=== PATIENT | female | born 1955 | race Hispanic/Latino ===

== ENCOUNTER → 2020-03-22 | Outpatient (CLI) | payer MEDICARE | LOC: US 10:35 | PROVIDERS: ATTEND Internal Medicine | DX: N18.9 Chronic kidney disease, unspecified (principal) | CPT/HCPCS: 76770 ==

== ENCOUNTER → 2020-12-01 | Day surgery (SDC) | payer MEDICARE ==
[2020-11-28 11:32] LABS: BASOPHILS # (AUTO) 0.1 (0.0-0.1); BASOPHILS % 0.6 % (0.0-1.0); EOSINOPHILS # (AUTO) 0.2 (0.0-0.4); EOSINOPHILS % 2.3 % (0.0-6.0); HEMATOCRIT 46.3 % (34.2-44.1); HEMOGLOBIN 14.2 g/dL (12.0-16.0); LYMPHOCYTES # (AUTO) 2.3 (1.0-3.2); LYMPHOCYTES % 28.2 % (18.0-39.1); MEAN CORPUSCULAR HGB CONC 30.7 g/dL (31-35); MEAN CORPUSCULAR VOLUME 81.5 fL (81-99); MONOCYTES # (AUTO) 0.7 (0.2-0.8); MONOCYTES % 8.6 % (4.4-11.3); NEUTROPHILS # (AUTO) 4.9 (2.1-6.9); NEUTROPHILS % 60.1 % (38.7-80.0); PLATELET COUNT 275 x10e3/uL (140-360); RED BLOOD COUNT 5.68 x10e6/uL (3.6-5.1); RED CELL DISTRIBUTION WIDTH 18.6 % (11.7-14.4)
[~2020-12-01] MED LIST: CYMBALTA30 MG; FENTANYL CITRATE/PF 100MCG/2 ML INJ ONE; FEROSUL325 MG PO; FUROSEMIDE40 MG PO; LANTUS 3ML100 UNITS/ SQ; LIDOCAINE HCL 2% LOCAL INJ 5 ML SDV VIAL INJ ONE; LINZESS145 MCG; LIPITOR20 MG PO; LISINOPRIL10 MG PO; LORATADINE10 MG PO; MIDAZOLAM HCL 2 MG/2 ML VIAL ONE; NEURONTIN400 MG PO; PANTOPRAZOLE SO40 MG PO; PLAVIX75 MG PO; PROPOFOL IV EMULSION 10 MG/ML 20 ML VIAL ONE; SLOW-MAG64 MG PO; TRICOR145 MG PO; VITAMIN D3125 MCG; ZETIA10 MG PO
[2020-12-01 12:16] VITALS: BP 103/61
== END | disposition home or self-care (01) ==
LOC: OR 10:07
PROVIDERS: ATTEND Internal Medicine Gastroenterology
DX: D50.0 Iron deficiency anemia secondary to blood loss (chronic) (principal); K57.30 Diverticulosis of large intestine without perforation or abscess without bleeding; K64.8 Other hemorrhoids; K29.50 Unspecified chronic gastritis without bleeding; K44.9 Diaphragmatic hernia without obstruction or gangrene; Z86.010 Personal history of colon polyps; I25.10 Atherosclerotic heart disease of native coronary artery without angina pectoris; E11.9 Type 2 diabetes mellitus without complications; K21.9 Gastro-esophageal reflux disease without esophagitis; E78.00 Pure hypercholesterolemia, unspecified; K25.9 Gastric ulcer, unspecified as acute or chronic, without hemorrhage or perforation; F17.210 Nicotine dependence, cigarettes, uncomplicated; Z82.49 Family history of ischemic heart disease and other diseases of the circulatory system; Z83.3 Family history of diabetes mellitus
CPT/HCPCS: 36415 ×2; 43239; 45378; 82948; 85025; 93005; J2001; J2250; J2704; J3010; U0002

== ENCOUNTER → 2024-02-11 | Outpatient (REF) | payer MEDICARE ==
[~2024-02-11] MED LIST changes: -FENTANYL CITRATE/PF 100MCG/2 ML INJ ONE; -LIDOCAINE HCL 2% LOCAL INJ 5 ML SDV VIAL INJ ONE; -MIDAZOLAM HCL 2 MG/2 ML VIAL ONE; -PROPOFOL IV EMULSION 10 MG/ML 20 ML VIAL ONE
== END ==
LOC: CARD 13:30
PROVIDERS: ATTEND Internal Medicine
DX: M79.604 Pain in right leg (principal); M79.605 Pain in left leg
CPT/HCPCS: 93925

== ENCOUNTER 2024-03-11 12:53 | Inpatient (IN) | payer MEDICARE ==
[~2024-03-11] VITALS: Ht 165.1 cm; Wt 83.9 kg
[2024-03-11 14:11] VITALS: PULSE 77; RESP 15; TEMP 98.7
[2024-03-11 14:36] LABS: BASOPHILS % 0.7 % (0.0-1.0); EOSINOPHILS # (AUTO) 0.1 (0.0-0.4); EOSINOPHILS % 1.8 % (0.0-6.0); HEMATOCRIT 35.2 % (34.2-44.1); HEMOGLOBIN 9.3 g/dL (12.0-16.0); LYMPHOCYTES % 16.7 % (18.0-39.1); MEAN CORPUSCULAR HEMOGLOBIN 18.8 pg (28-32); MEAN CORPUSCULAR HGB CONC 26.4 g/dL (31-35); MEAN CORPUSCULAR VOLUME 71.1 fL (81-99); MONOCYTES # (AUTO) 0.5 (0.2-0.8); MONOCYTES % 7.4 % (4.4-11.3); NEUTROPHILS # (AUTO) 4.5 (2.1-6.9); NEUTROPHILS % 73.1 % (38.7-80.0); PLATELET COUNT 328 x10e3/uL (140-360); RED BLOOD COUNT 4.95 x10e6/uL (3.6-5.1); RED CELL DISTRIBUTION WIDTH 22.9 % (11.7-14.4); WHITE BLOOD COUNT 6.12 x10e3/uL (4.8-10.8)
[2024-03-11 15:25] LABS: ALBUMIN 3.8 g/dL (3.5-5.0); ALBUMIN/GLOBULIN RATIO 1.1 (0.8-2.0); ANION GAP 19.1 mmol/L (8-16); BILIRUBIN,TOTAL 0.3 mg/dL (0.2-1.2); CALCIUM 10.1 mg/dL (8.4-10.2); CREATININE, SERUM 1.73 mg/dL (0.57-1.11); TOTAL PROTEIN 7.3 g/dL (6.5-8.1)
[2024-03-11 15:34] LABS: POTASSIUM 6.1 mmol/L (3.5-5.1)
[2024-03-11] MEDS: DEXTROSE 50% SYRINGE 50 ML IV STA (16:24)
[2024-03-11] MEDS: SODIUM BICARBONATE 8.4% INJ 50 ML SYR IV STA (16:30)
[2024-03-11] MEDS: SOD POLYSTYRENE SULFONATE SUSP 15 GM/60 ML BTL PO ONE (16:33)
[2024-03-11] MEDS: INSULIN REGULAR, HUMAN 100 UNIT/1 ML IV ONE (16:33)
[2024-03-11] MEDS: CALCIUM GLUC 1 G/50 ML NACL 50 ML IV SCH ×2 (16:33→23:59)
[2024-03-11] MEDS: ALBUTEROL SULF 0.083% NEB SOLN 3 ML NEB NEB STA (16:46)
[2024-03-11 17:48] VITALS: PULSE 74; RESP 20; O2SAT 98
[2024-03-11 18:24] VITALS: PULSE 81; RESP 17; O2SAT 97
[2024-03-11 19:18] VITALS: BP 124/57; PULSE 77; RESP 18; TEMP 97.6; O2SAT 97
[2024-03-11] MEDS: FUROSEMIDE INJ 10 MG/ML 2 ML VIAL IV ONE (21:52)
[2024-03-11 23:28] VITALS: BP 146/62; PULSE 74; RESP 18; TEMP 97.7; O2SAT 96
[2024-03-11] MEDS: FUROSEMIDE INJ 10 MG/ML 2 ML VIAL ONE (23:58)
[2024-03-12 03:13] VITALS: BP 107/59; PULSE 73; RESP 18; TEMP 98.2; O2SAT 97
[2024-03-12 07:03] LABS: ANION GAP 16.2 mmol/L (8-16); CALCIUM 10.3 mg/dL (8.4-10.2); CREATININE, SERUM 1.36 mg/dL (0.57-1.11); POTASSIUM 4.2 mmol/L (3.5-5.1)
[2024-03-12 08:00] VITALS: BP 108/60; PULSE 67; RESP 17; TEMP 97.9; O2SAT 96
[2024-03-12 08:17] VITALS: PULSE 76; RESP 16; O2SAT 97
[2024-03-12 09:35] VITALS: BP 108/60; PULSE 76; RESP 16; TEMP 97.9; O2SAT 97
[2024-03-12 12:21] VITALS: BP 106/57; PULSE 70; RESP 16; TEMP 98.2; O2SAT 98
== END 2024-03-12 16:20 | disposition home or self-care (01) | DRG 641 ==
LOC: ER 14:16 → ERHOLD 16:06 → MED/SURG3 18:49
PROVIDERS: ADMIT Internal Medicine; ATTEND Internal Medicine
DX: E87.5 Hyperkalemia (principal); E87.20 Acidosis, unspecified; I12.9 Hypertensive chronic kidney disease with stage 1 through stage 4 chronic kidney disease, or unspecified chronic kidney disease; E11.22 Type 2 diabetes mellitus with diabetic chronic kidney disease; E11.42 Type 2 diabetes mellitus with diabetic polyneuropathy; N18.32 Chronic kidney disease, stage 3b; E78.5 Hyperlipidemia, unspecified; I25.10 Atherosclerotic heart disease of native coronary artery without angina pectoris; Z95.5 Presence of coronary angioplasty implant and graft; Z85.3 Personal history of malignant neoplasm of breast; Z79.02 Long term (current) use of antithrombotics/antiplatelets; Z79.4 Long term (current) use of insulin; F17.200 Nicotine dependence, unspecified, uncomplicated
CPT/HCPCS: 36415; 80048; 80053; 82948; 85025; 93005; 94799; 99284; J0612; J1940; J7799